=== PATIENT | male | born 1970 | race Hispanic/Latino ===

== ENCOUNTER 2023-05-26 14:11 | Emergency (ER) | payer SELFPAY ==
[2023-05-26 14:13] VITALS: BP 134/92
--- NOTE | 2023-05-26 15:35 | ED.GENMED ---
Addendum entered and electronically signed by Rene Moran MD 06/17/23 01:58:
signed.
Rene Moran MD
Original Note:
History of Present Illness
General
Chief Complaint: Skin Surface Trauma
Source: patient
Exam Limitations: none
Time Seen by Provider: 05/26/23 15:16
Nursing documentation reviewed up to this point in time: agreed with
Travel History
Have you had any contact with someone who has COVID-19?: No
Do you have any symptoms of coronavirus? Fever > 100 degrees, chills, cough, shortness of breath, sore throat, loss of taste or smell, muscle aches, or headache?: No
History of Present Illness
History of Present Illness:
53-year-old male presents to the ER for evaluation. Patient is [place]-speaking language line used to assist in translation. Patient reports around 1 PM he was getting snow and ice out of a snowblower and cut his left third and fourth fingers. He
denies any other injuries. He is right-hand dominant. He is unsure of his last tetanus.
Review of Systems
Review of Systems
Allergies reviewed?: Yes
All Other Systems: ROS reviewed and negative except as documented in HPI and ROS
Constitutional: Reports no symptoms; Denies fever, fatigue or chills
Musculoskeletal: Reports other (left 3rd /4th finger lacerations/injuries )
Skin: Reports other (see above )
Neurological: Reports no symptoms
Psychiatric: Reports no symptoms
Phy Exam
General Physical Exam
General Presentation: no apparent distress
General age: appears stated age
General Skin: warm and dry
General Habitus: normal
General Mental: alert
General Hydration: appears well hydrated
Neurological Exam
Neurological Exam: alert and oriented x3
Musculoskeletal Exam
Musculoskeletal Exam: other (LUE with strong pulses 3rd, 4th finger with obvious lacerations to distal fingers, nails are avulsed lacerations macerated, normal sensation, at DIP joint patient able to flex and extend, all full rom to pip joints )
Skin Exam
Skin Exam: normal color and warm/dry
Course
Orders/Labs/Results
Orders:
Orders
05/26/23 15:23
Hand, Left 3 View [CR Hand - Left Min 3 Views] Urgent
Comment: snowblower
Reason For Exam: trauma, lacerations
05/26/23 15:33
Cephalexin Monohydrate [Keflex] 500 mg PO NOW STA
Tetanus/Diphth/Acelpertussis [Adacel] 0.5 ml IM .ONCE ONE
05/26/23 16:47
Amoxicillin 875 mg/Clav 125 mg [Augmentin 875 mg/125 mg] 1 tablet PO NOW STA
05/26/23 16:48
Amoxicillin 875 mg/Clav 125 mg [Augmentin 875 mg/125 mg] 1 tablet .ROUTE .STK-MED ONE
05/26/23 16:57
Ibuprofen [Motrin] 600 mg PO NOW STA
Vital Signs
Initial and Last Documented VS:
Initial Vital Signs
Temp Pulse Resp BP Pulse Ox
99.0 F 100 16 134/92 99
05/26/23 14:13 05/26/23 14:13 05/26/23 14:13 05/26/23 14:13 05/26/23 14:13
Last Documented Vital Signs
Temp Pulse Resp BP Pulse Ox
99.0 F 100 16 134/92 99
05/26/23 14:13 05/26/23 14:13 05/26/23 14:13 05/26/23 14:13 05/26/23 14:13
Procedures
Other
Indication for procedure:: Obvious lacerations to left third and fourth finger
Procedure completed by: Myself
Additional Procedure:
Digital block with 1% lidocaine to left third and fourth fingers; lacerations were irrigated with copious serge normal saline Steri-Strips applied to secure laceration and Xeroform applied as recommended by orthopedic with finger splint
MDM/Problems Addressed
MDM/Problems Addressed:
Patient is a 53-year-old [place]uan-speaking male who presents to the ER with obvious lacerations to left middle and ring fingers. Patient was cleaning out a snowblower to remove ice and snow. Patient is [place]-speaking language line was used.
X-ray shows comminuted fractures of the distal phalanges of the left middle and ring fingers with splinting of several tiny fracture fragments. Case reviewed with Dr. Olson of orthopedic hand surgery who was able to visualize images and x-rays on
[place] text. He will see patient in the office tomorrow. He does recommend Xeroform, splinting. Patient was initially given Keflex here however will send patient home with Augmentin as recommended by Dr. Torres as well as a prescription. Patient
was updated on tetanus. I did review with language line the importance of following up with hand surgeon tomorrow. All instructions were reviewed with patient with language line.
*Radiology
Radiology exam reviewed: radiology read reviewed
*Pulse Oximetry
Patient hypoxic: no
*Critical Care Note
Total Time (30-74mins, 75-104mins- exclusive of procedures): Not Applicable
ED Attending Note
-
Portions of this chart may have been created with voice recognition software.� Occasional wrong word or��sound alike� substitutions may have occurred due to the inherent limitations of voice recognition software.
Discharge Plan
Departure
Patient Disposition: Home (Routine Discharge)
Date of Disposition: 05/26/23
Time of Disposition: 16:41
Patient with high blood pressure during this ER visit?: Yes
Condition: Fair
Covid-19: Not Applicable
Discharge Problem:
Open fracture of finger
Instructions: Finger Fracture (DC), BLOOD PRESSURE
Prescriptions:
New
amoxicillin-pot clavulanate 875-125 mg tablet
1 tab PO BID Qty: 10 0RF
Referrals:
NONE,* [Family Provider] -
Oziel Olson MD [Active] -
Activity Restrictions/Additional Instructions:
Keep fingers clean and dry. Follow-up with orthopedic hand doctor tomorrow.
[facility]: [facility] building [address]
[facility]
[address]
[place] [address].
[phone]
Take antibiotic as discussed , this was sent to your pharmacy.
Ibuprofen 600 mg every 8 hours for discomfort. You may also take Tylenol 650 mg every 4-6.
Return if any worsening of symptoms of increased pain or any further concerns
[2023-05-26] MEDS: KEFLEX 500 MG PO (16:45)
[2023-05-26] MEDS: ADACEL 0.5 ML IM (16:45)
[2023-05-26] MEDS: AUGMENTIN 875 MG/125 MG 1 TABLET PO (17:20)
[2023-05-26] MEDS: MOTRIN 600 MG PO (17:20)
== END 2023-05-26 17:19 | disposition home or self-care (01) ==
LOC: EMR 14:11
PROVIDERS: EMERGENCY PHYSICIAN Emergency Medicine
DX: S62.633B Displaced fracture of distal phalanx of left middle finger, initial encounter for open fracture (principal); S62.635B Displaced fracture of distal phalanx of left ring finger, initial encounter for open fracture; W29.3XXA Contact with powered garden and outdoor hand tools and machinery, initial encounter; R03.0 Elevated blood-pressure reading, without diagnosis of hypertension; Z23 Encounter for immunization
CPT/HCPCS: 64450; 99284; 90471; 73130; 90715